=== PATIENT | female | born 1950 | race Caucasian/White ===

== ENCOUNTER 2020-10-18 14:20 | Emergency (ER) | payer MEDICARE, OTHER ==
[2020-10-18] MEDS ORDERED: fentaNYL 100 MCG/2 ML SDV IVPUSH ONE (14:31)
[2020-10-18] MEDS ORDERED: Sodium Chloride 0.9% 10 ML Syringe FLUSH PRN (14:31)
[2020-10-18] MEDS ORDERED: Glucagon,Human Recombinant 1 MG Vial IVPUSH ONE (14:31)
[2020-10-18] MEDS ORDERED: Metoclopramide 10 MG/2 ML SDV IVPUSH ONE (14:31)
--- NOTE | 2020-10-18 14:45 | EDM.PDOC ---
ED HPI GENERAL MEDICAL PROBLEM - General Chief Complaint: ENT Problem Stated Complaint: [facility] Time Seen by Provider: 10/18/20 14:35 Source of Information: Reports: Patient, RN Notes Reviewed History Limitations: Reports: No Limitations - History of Present Illness INITIAL COMMENTS - FREE TEXT/NARRATIVE: Patient is a 70-year-old female who presents to the ER for the evaluation of a food bolus impaction. Patient was brought to the ER by [place] [facility]. The patient was at home around 1:00 PM eating a pork chop, when she began to choke. Her did perform the Heimlich maneuver, she notes that the piece of meat most of dislodge, but then went down her esophagus. Notes that she has had issues with food impaction bolus from time to time. And it was stuck in her esophagus all the way to the ER. Patient at time of triage was spitting up phlegm, but shortly after being moved to the ER cot, she believes that the food has dislodged into her stomach. Patient denies any other sick- like symptoms, fever/chills, cough/shortness of breath, nausea/vomiting/diarrhea. Primary care provider is July Grubbs. - Related Data Allergies Allergy/AdvReac Type Severity Reaction Status Date / Time No Known Drug Allergies Allergy N/A Verified 10/18/20 14:26 Home Meds: Home Meds Aspirin [Aspirin EC] 81 mg PO DAILY 10/18/20 [History] Dulaglutide [Trulicity] 1 injection SQ DAILY 10/18/20 [History] Insulin Glargine,Hum.Rec.Anlog [Lantus Solostar] 25 unit SQ BEDTIME 10/18/20 [H istory] Rosuvastatin [Crestor] 0 mg PO DAILY 10/18/20 [History] hydroCHLOROthiazide [Hydrochlorothiazide] 0 mg PO DAILY 10/18/20 [History] lisinopriL [Lisinopril] 0 mg PO DAILY 10/18/20 [History] metFORMIN [Glucophage XR] 0 mg PO DAILY 10/18/20 [History] Past Medical History Cardiovascular History: Reports: High Cholesterol, Hypertension Endocrine/Metabolic History: Reports: Diabetes, Type II - Past Surgical History Female Surgical History: Reports: Section, Hysterectomy, Other (See Below) Other Female Surgeries/Procedures: bladder repair Musculoskeletal Surgical History: Reports: Other (See Below) Other Musculoskeletal Surgeries/Procedures:: back surgery x3 Social & Family History - Tobacco Use Tobacco Use Status *Q: Never Tobacco User Second Hand Smoke Exposure: No - Recreational Drug Use Recreational Drug Use: No ED ROS ENT - Review of Systems Review Of Systems: Comprehensive ROS is negative, except as noted in HPI. ED EXAM, ENT - Physical Exam Exam: See Below Exam Limited By: No Limitations General Appearance: Alert, WD/WN, No Apparent Distress Head: Atraumatic, Normocephalic Neck: Normal Inspection Respiratory/Chest: No Respiratory Distress, Lungs Clear, Normal Breath Sounds, No Accessory Muscle Use, Chest Non-Tender Cardiovascular: Normal Peripheral Pulses, Regular Rate, Rhythm, No Murmur GI/Abdominal: Normal Bowel Sounds, Soft, Non-Tender, No Distention, No Mass Extremities: Normal Inspection, Normal Capillary Refill Neurological: Alert, Oriented, Normal Cognition, No Motor/Sensory Deficits Psychiatric: Normal Affect, Normal Mood Skin: Warm, Dry, Intact, Normal Color, No Rash Course - Vital Signs Last Recorded V/S: Last Vital Signs Temp 97 F 10/18/20 14:22 Pulse 95 10/18/20 14:22 Resp 16 10/18/20 14:22 BP 113/94 H 10/18/20 14:22 Pulse Ox 97 10/18/20 14:22 - Orders/Labs/Meds Orders: Active Orders 24 hr Category Date Time Status Sodium Chloride 0.9% [Saline Flush] Med 10/18/20 14:31 Stop Req 10 ml FLUSH ASDIRECTED PRN Medication Orders Sodium Chloride (Sodium Chloride 0.9% 10 Ml Syringe) 10 ml FLUSH ASDIRECTED PRN PRN Reason: Keep Vein Open Meds: Medications Generic Name Dose Route Start Last Admin Trade Name Freq PRN Reason Stop Dose Admin Sodium Chloride 10 ml 10/18/20 14:31 Sodium Chloride 0.9% 10 Ml Syringe FLUSH ASDIRECTED PRN Keep Vein Open Discontinued Medications Generic Name Dose Route Start Last Admin Trade Name Freq PRN Reason Stop Dose Admin Fentanyl 50 mcg 10/18/20 14:31 Fentanyl 100 Mcg/2 Ml Sdv IVPUSH 10/18/20 14:32 ONETIME ONE Glucagon 1 mg 10/18/20 14:31 Glucagon,Human Recombinant 1 Mg Vial IVPUSH 10/18/20 14:32 ONETIME ONE Metoclopramide HCl 10 mg 10/18/20 14:31 Metoclopramide 10 Mg/2 Ml Sdv IVPUSH 10/18/20 14:32 ONETIME ONE - Re-Assessments/Exams Free Text/Narrative Re-Assessment/Exam: 10/18/20 14:44 Patient presents to the ER for the evaluation of a possible food bolus. She believes this has passed as she got moved to the ER cot. We will go ahead and give her some fluid to sip on to see if this stays down and I will contact general surgery for referral for EGD with dilatation, patient is okay with this plan at this time. 10/18/20 14:47 Patient is feeling better, is able to keep fluids down. We will discharge her home. I have called Dr. Stevenson surgeon on-call and he notes he will see her in consultation for EGD with dilatation sometime this week. I will give patient contact information and have her follow-up with him for ongoing management. Departure - Departure Time of Disposition: 14:47 Disposition: Home, Self-Care 01 Condition: Good Clinical Impression: Bolus impaction of digestive tract Foreign body in throat Qualifiers: Encounter type: initial encounter Qualified Code(s): T17.208A - Unspecified foreign body in pharynx causing other injury, initial encounter - Discharge Information *PRESCRIPTION DRUG MONITORING PROGRAM REVIEWED*: No *COPY OF PRESCRIPTION DRUG MONITORING REPORT IN PATIENT VENICE: No Instructions: Choking, Adult Referrals: July Grubbs NP [Primary Care Provider] - Maria Elena Stevenson MD [Physician] - 1 Day (food impaction bolus; poss EGD w dilatation) Forms: ED Department Discharge Additional Instructions: You were evaluated in the ER today for your food impaction bolus. Likely this did pass and you do not need medications or any surgical intervention to pass the bolus. Your case was discussed with our general surgeon on-call today Dr. Stevenson, and he would like to see you in consultation for possible upper endoscopy with esophageal dilatation. You can call his office tomorrow at [phone], to schedule an appoint with him. He notes that this could possibly be on Monday for further management. Going forward from here, please try to take smaller bites, and chew your food very thoroughly, drink plenty of water while eating meats, as these seem to be the worst offenders for getting caught in your throat. Please return to the ER at any time if symptoms change or worsen. Sepsis Event Note (ED) - Evaluation Sepsis Screening Result: No Definite Risk - Focused Exam Vital Signs: Vital Signs Temp Pulse Resp BP Pulse Ox 10/18/20 14:22 97 F 95 16 113/94 H 97 - My Orders Last 24 Hours: My Active Orders 10/18/20 14:31 Sodium Chloride 0.9% [Saline Flush] 10 ml FLUSH ASDIRECTED PRN - Assessment/Plan Last 24 Hours: My Active Orders 10/18/20 14:31 Sodium Chloride 0.9% [Saline Flush] 10 ml FLUSH ASDIRECTED PRN
[2020-10-18 15:12] VITALS: BP 120/75; PULSE 85
== END 2020-10-18 15:05 | disposition home or self-care (01) ==
LOC: JD.ED 14:20
DX: T17.208A Unspecified foreign body in pharynx causing other injury, initial encounter (principal); K56.49 Other impaction of intestine; E78.00 Pure hypercholesterolemia, unspecified; I10 Essential (primary) hypertension; E11.9 Type 2 diabetes mellitus without complications; Z79.82 Long term (current) use of aspirin; Z79.84 Long term (current) use of oral hypoglycemic drugs; Z79.899 Other long term (current) drug therapy
CPT/HCPCS: 99284

== ENCOUNTER 2025-02-21 03:03 | Inpatient (IN) | payer MEDICARE, OTHER ==
[2025-02-21] MEDS ORDERED: Sodium Chloride 0.9% 10 ML Syringe FLUSH PRN (03:18)
[2025-02-21 03:32] LABS: BASOPHILS ABSOLUTE AUTO 0.0 K/mm3 (0.0-0.2); BASOPHILS PERCENT AUTO 0.1 % (0.0-1.0); EOSINOPHILS ABSOLUTE AUTO 0.0 K/mm3 (0.0-0.4); EOSINOPHILS PERCENT AUTO 0.2 % (0.0-6.0); IMMATURE GRAN ABSOLUTE AUTO 0.04 K/mm3 (0.00-0.05); IMMATURE GRAN PERCENT AUTO 0.4 % (0.0-0.4); LYMPHOCYTES ABSOLUTE AUTO 0.9 K/mm3 (1.0-4.8); LYMPHOCYTES PERCENT AUTO 8.4 % (24.0-44.0); MEAN PLATELET VOLUME 9.5 fl (9.4-12.3); MONOCYTES ABSOLUTE AUTO 0.4 K/mm3 (0.0-0.8); MONOCYTES PERCENT AUTO 4.0 % (0.0-8.0); NEUTROPHILS ABSOLUTE AUTO 8.9 K/mm3 (1.8-7.7); NEUTROPHILS PERCENT AUTO 86.9 % (41.0-71.0); NRBC ABSOLUTE 0.00 (0.00-0.02); NRBC PERCENT 0.0 % (0.0-0.2); PLATELET COUNT,PLT 218 K/mm3 (150-400); RED BLOOD CELL COUNT 5.32 M/mm3 (4.10-5.30); WHITE BLOOD CELL COUNT,WBC 10.21 K/mm3 (3.9-11.3)
[2025-02-21 03:59] LABS: A/G RATIO 1.0 (1-2); ALANINE AMINOTRANSFERASE,ALT 75 U/L (14-59); ASPARTATE AMNIOTRANSFERASE,AST 39 U/L (15-37); BILIRUBIN TOTAL 1.1 mg/dL (0.2-1.0); BLOOD UREA NITROGEN,BUN 31 mg/dL (7-18); CARBON DIOXIDE,CO2 35 mEq/L (21-32); CHLORIDE,CL 97 mEq/L (98-107); CREATININE 0.9 mg/dL (0.55-1.02); ESTIMATED GFR 68 mL/min (>60); GLUCOSE RANDOM 371 mg/dL (70-99); POTASSIUM,K 3.8 mEq/L (3.5-5.1); PROTEIN TOTAL,TP 8.1 g/dl (6.4-8.2); SODIUM,NA 140 mEq/L (136-145)
[2025-02-21 04:01] LABS: LACTIC ACID 2.2 mmol/L (0.4-2.0)
[2025-02-21] MEDS ORDERED: Naloxone 0.4 MG/ML SDV IVPUSH PRN (04:16)
[2025-02-21] MEDS: Iopamidol 612 MG/ML 100 ML Bottle IVPUSH ONE (04:17)
[2025-02-21 08:40] LABS: APPEARANCE,URINE CLEAR (Clear); GLUCOSE,URINE TRACE (Negative); OCCULT BLOOD,URINE TRACE-LYSED (Negative)
[2025-02-21] MEDS: Ketorolac 15 MG/ML SDV IVPUSH PRN (20:25)
[2025-02-22 05:48] LABS: BASOPHILS ABSOLUTE AUTO 0.0 K/mm3 (0.0-0.2); BASOPHILS PERCENT AUTO 0.5 % (0.0-1.0); EOSINOPHILS ABSOLUTE AUTO 0.2 K/mm3 (0.0-0.4); EOSINOPHILS PERCENT AUTO 4.0 % (0.0-6.0); IMMATURE GRAN ABSOLUTE AUTO 0.01 K/mm3 (0.00-0.05); IMMATURE GRAN PERCENT AUTO 0.2 % (0.0-0.4); LYMPHOCYTES ABSOLUTE AUTO 1.9 K/mm3 (1.0-4.8); LYMPHOCYTES PERCENT AUTO 31.9 % (24.0-44.0); MEAN PLATELET VOLUME 9.4 fl (9.4-12.3); MONOCYTES ABSOLUTE AUTO 0.4 K/mm3 (0.0-0.8); MONOCYTES PERCENT AUTO 6.0 % (0.0-8.0); NEUTROPHILS ABSOLUTE AUTO 3.5 K/mm3 (1.8-7.7); NEUTROPHILS PERCENT AUTO 57.4 % (41.0-71.0); NRBC ABSOLUTE 0.00 (0.00-0.02); NRBC PERCENT 0.0 % (0.0-0.2); PLATELET COUNT,PLT 151 K/mm3 (150-400); RED BLOOD CELL COUNT 3.90 M/mm3 (4.10-5.30); WHITE BLOOD CELL COUNT,WBC 6.02 K/mm3 (3.9-11.3)
[2025-02-22 06:15] LABS: A/G RATIO 1.0 (1-2); ALANINE AMINOTRANSFERASE,ALT 42.0 U/L (14-59); ASPARTATE AMNIOTRANSFERASE,AST 25.0 U/L (15-37); BILIRUBIN TOTAL 0.8 mg/dL (0.2-1.0); BLOOD UREA NITROGEN,BUN 23.0 mg/dL (7-18); CARBON DIOXIDE,CO2 25.0 mEq/L (21-32); CREATININE 0.4 mg/dL (0.55-1.02); EST CRCL DRUG DOSING (CG) 119.01 mL/min; ESTIMATED GFR 105.0 mL/min (>60); GLUCOSE RANDOM 164.0 mg/dL (70-99); POTASSIUM,K 3.6 mEq/L (3.5-5.1); PROTEIN TOTAL,TP 5.7 g/dl (6.4-8.2); SODIUM,NA 143.0 mEq/L (136-145)
[2025-02-22 06:27] LABS: CHLORIDE,CL 110.0 mEq/L (98-107)
[2025-02-22 16:16] VITALS: BP 155/118; PULSE 68
== END 2025-02-22 15:56 | disposition home or self-care (01) | DRG 389 ==
LOC: JD.ED 03:03 → JD.MS 09:32 → INTOOBSV 02-22 10:03 → OBSVTOIN 02-22 10:03 → UNDODISOB 02-22 15:56
PROVIDERS: ADMIT Family Medicine; ATTEND Family Medicine
DX: K56.7 Ileus, unspecified (principal); E87.20 Acidosis, unspecified; N39.0 Urinary tract infection, site not specified; E86.0 Dehydration; K59.00 Constipation, unspecified; M54.9 Dorsalgia, unspecified; I10 Essential (primary) hypertension; G89.29 Other chronic pain; N81.10 Cystocele, unspecified; E78.00 Pure hypercholesterolemia, unspecified; E11.9 Type 2 diabetes mellitus without complications; Z79.82 Long term (current) use of aspirin; Z79.899 Other long term (current) drug therapy; Z98.891 History of uterine scar from previous surgery; Z90.710 Acquired absence of both cervix and uterus; Z98.890 Other specified postprocedural states; Z90.49 Acquired absence of other specified parts of digestive tract
CPT/HCPCS: 36415 ×2; 74177; 80053 ×2; 81001; 83605 ×3; 83690; 83735; 85025 ×2; 87086; 96361 ×3; 96372; 96374; 96375 ×2; 99285; A9270; G0378 ×3; J0696; J1650; J1885; J2470; J7030 ×6; Q9967; 99284; J1171